=== PATIENT | female | born 1975 | race Caucasian/White ===

== ENCOUNTER 2023-07-09 10:28 | Day surgery (SDC) | payer OTHER, SELFPAY ==
--- NOTE | 2023-07-09 | PATH_ITS ---
[facility] Accession Number: [id number] No. of containers..01 Tissue . 01 Material submitted: . colon - POLYP AT 40 . 01 Diagnosis: Colon Polyp At 40 cm: Serrated lesion, favor sessile serrated adenoma. [facility] 07/11/2023 1115 Local . 01 Electronically signed: . Te Weston MD, PhD, Pathologist NPI- [id number] . 01 Gross description: . POLYP AT 40: Received in formalin is 1 fragment(s) of rogers, soft tissue measuring 0.3 x 0.2 x 0.2 cm submitted entirely in 1 cassette(s) /JENN 07/10/2023 1920 Local . 01 Pathologist provided ICD-10: D12.6 . 01 CPT . 155525 Specimen Comment: A courtesy copy of this report has been sent to [phone] Performed at: 01 [facility] [address] [place] [address], [place], [place] [id number] MD Krishna Le MD Phone: [phone]
[2023-07-09 10:49] VITALS: BP 117/82; PULSE 78; RESP 16; TEMP 36.6; O2SAT 99
[2023-07-09] MEDS: LACTATED RINGERS 1,000 ML 42 ML IV (11:03)
[2023-07-09 11:12] LABS: Hematocrit 42.5 % (36-46); Hemoglobin 14.4 g/dL (12.0-16.0); Mean Corpuscular HGB Conc 33.8 % (30-36); Mean Corpuscular Hemoglobin 29.3 PG (26-34); Mean Corpuscular Volume 86.5 fL (80-100); Platelet Count 56 X10^3/uL (150-400); Red Blood Cell Count 4.91 X10^6/uL (4.0-5.2); Red Cell Distribution Width 13.3 % (11.6-14.8); White Blood Cell Count 6.1 X10^3/uL (4.5-11.0)
--- NOTE | 2023-07-09 11:31 | P.HP_ITS ---
History of Present Illness History of Present Illness Date Patient Seen: 07/09/23 Chief complaint: Screening Colonoscopy Narrative: 1st screening colonoscopy [facility] Medical History (Updated 07/09/23 @ 11:01 by Emily Glynn RN) History of ITP Surgical History (Updated 07/09/23 @ 10:48 by Emily Glynn RN) [place] teeth extracted Social History Smoking Status: Never smoker alcohol intake: current Meds Home Medications and Allergies Home Medications Medication Instructions Recorded Confirmed Type No Known Home Medications 07/09/23 07/09/23 History Allergies Allergy/AdvReac Type Severity Reaction Status Date / Time No Known Drug Allergies Allergy Verified 07/09/23 10:29 Exam Vital Signs (past 8 hours): - 07/09/23 10:49 Temperature 97.9 F Pulse Rate 78 Respiratory Rate 16 Blood Pressure 117/82 Pulse Oximetry 99 Oxygen Delivery Method Room Air Oxygen Delivery Method Room Air Narrative Exam Narrative: Oropharynx free of lesions Chest clear to auscultation percussion Cardiac exam reveals no S3 or murmur Objective Labs 07/09/23 11:04 Labs: Laboratory Results - last 24 hr 07/09/23 11:04 WBC 6.1 RBC 4.91 Hgb 14.4 Hct 42.5 MCV 86.5 MCH 29.3 MCHC 33.8 RDW 13.3 Plt Count 56 L Assessment & Plan Assessment & Plan narrative: Need for for screening colonoscopy. Risks benefits and alternatives have been explained. During the intake for this primary colonoscopy patient stated that she had a ?low platelet count?. When asked further whether this was I TP she stated that it was. She indicated that anesthesia would not do an epidural for her when she delivered her child. She has not needing any intervention for it at this time. Platelet count was drawn and was 56 which is acceptable for the procedure in to remove small polyps. Otherwise we would have seen her in the office 1st. I told her that should in the future she should indicate that this is a significant medical problem particularly before procedures.
--- NOTE | 2023-07-09 11:33 | PM.OP.COLON ---
Operative Date/Time/Diagnoses Date of procedure: 07/09/23 Pre-op diagnosis: See indication and findings Procedure & Clinicians Study performed: Colonoscopy Indications: Screening Surgeon: Jose Trujillo Procedure Notes Procedure in detail: After informed consent was obtained patient was placed in left lateral decubitus position. The video colonoscope was introduced the rectum slowly advanced cecum. On slow withdrawal mucosa was carefully examined. The scope was removed. The patient tolerated procedure well. Blood loss none Complications none Sedation mac Findings 1. Diminutive 3-4 mm polyp at 40 cm biopsied and removed completely 2. Otherwise negative colonoscopy to cecum Patient will be informed about the pathology results and this will determine her follow-up interval most likely 7-10 years.
[2023-07-09 12:19] VITALS: BP 92/65; PULSE 87; RESP 19; TEMP 36.8; O2SAT 93
[2023-07-09 12:24] VITALS: BP 102/74; PULSE 93; RESP 13; O2SAT 97
[2023-07-09 12:29] VITALS: BP 115/79; PULSE 84; RESP 17; O2SAT 98
[2023-07-09 12:34] VITALS: BP 107/78; PULSE 81; RESP 20; TEMP 36.7; O2SAT 96
== END 2023-07-09 12:48 | disposition home or self-care (01) ==
PROVIDERS: Family Provider Physician Assistant; PCP Physician Assistant; Referring Provider Internal Medicine Gastroenterology; Visit Provider Internal Medicine Gastroenterology
PROC: 0DJD8ZZ Inspection of Lower Intestinal Tract, Via Natural or Artificial Opening Endoscopic (ICD-10-PCS; CPT 45378; principal; 2023-07-09 11:30)
DX: Z12.11 Encounter for screening for malignant neoplasm of colon (principal); D69.3 Immune thrombocytopenic purpura; K63.5 Polyp of colon
CPT/HCPCS: 45380; 85027; J2704

== ENCOUNTER → 2023-08-13 14:05 | Outpatient (CLI) | payer OTHER, SELFPAY ==
--- NOTE | 2023-08-13 14:07 | DI.RAD.S_ITS ---
PROCEDURE: XR LUMBAR SPINE 2-3V INDICATIONS: lumbar pain TECHNIQUE: 3 views of the lumbar spine were acquired. COMPARISON: None. FINDINGS: Bones: 5 [id number] vertebrae are present. There is normal bony alignment. No vertebral body compression fractures. No suspicious bony lesions. Mild disc height loss at L4-5. Soft tissues: Overlying bowel gas pattern is normal. No suspicious soft tissue calcifications. IMPRESSION: Mild disc height loss at L4-5. Dictated by: Saad Cheung M.D. on 08/13/2023 at 14:48 Approved by: Saad Cheung M.D. on 08/13/2023 at 14:48
== END ==
LOC: RAD 14:07
PROVIDERS: Family Provider Physician Assistant; PCP Physician Assistant; Referring Provider Nurse Practitioner Family; Visit Provider Nurse Practitioner Family
DX: S39.012A Strain of muscle, fascia and tendon of lower back, initial encounter (principal); X58.XXXA Exposure to other specified factors, initial encounter
CPT/HCPCS: 72100

== ENCOUNTER → 2024-08-05 15:09 | Outpatient (RCR) | payer BC, SELFPAY ==
--- NOTE | 2023-04-02 13:30 | PT.OPPOC ---
Physical, Occupational & Speech Therapy At [facility] Current Diagnoses Stress incontinence (female) (male) (04/02/23) Pelvic muscle wasting (04/02/23) Visit Care Team Role Provider Type Sania Smith PA-C Attending Provider Advanced Optical Brightener Maker Helper Family Provider Primary Care Provider Referring Provider Specialty: Medical Address: [address] [place] [address], [facility] Email: Plan Of Care PT-OP-T Assessment and Plan Start: 04/02/23 09:18 Freq: Status: Active Protocol: Document 04/02/23 11:15 [facility] (Rec: 04/03/23 11:09 [facility] [id number]) Physical Therapy Assessment Rehab Potential Rehabilitation Potential Excellent Evaluation Complexity Number of Personal Factors/Comorbidities 0 Number of Body Systems Impaired 1-2 Clinical Presentation at Evaluation Stable Impairments Impairments Activity Tolerance,Functional Activities,Functional Mobility ,Soft Tissue Mobility,Strength ,Tone Goals 3 Impairment Decreased endurance of the pelvic floor with 1-2 second hold only Short Term Goal (STG) Moira is able to sustain a pelvic floor contraction in supine x 10 seconds STG Duration 5 weeks Alf Goal (LTG) Moira is able to sustain a pelvic floor contraction in standing 5-10 seconds LTG Duration 12 weeks 2 Impairment pelvic floor weakness with MMT of 1/5 for anterior and lateral cuevas and 2/5 for posterior cuevas of the levator ani Drain Technician Goal (LTG) Moira presents with improved strength of the pelvic floor and has improved her MMT by 1 muscle grade or better for improved bladder support and decreased urinary incontinence LTG Duration 12 weeks 1 Impairment urinary stress incontinence that has worsened in the past 3 years but includes leakage of 5-10 times per week Short Term Goal (STG) Moira is educated in a pelvic floor strengthening program for home STG Duration 4 weeks Drain Technician Goal (LTG) Moira reports a overall reduction in urinary incontinence and has decreased her amount of leakage from 5- 10 times per week to 1 or less per week LTG Duration 12 weeks Assessment Summary Assessment Moira is a 47 year old female who presents to physical therapy with urinary stress incontinence that has progressed in the past 3 years . She has a history of 2 vaginal deliveries and her boys are 7 and 6 years old. She notes that she is leaking when running after her kids and playing soccer with them. Moira also reports occasional urgency trying to get to the bathroom and she does get up to void 1 time per night. With pelvic floor evaluation today Moira has difficulty pulling in from the perineum. She does note a 3rd degree tear after her first vaginal delivery. There is some tenderness to palpation at the perineum as well as scar tissue tightness creating a downward pull and some gapping at the introitus. Moira is weak throughout her pelvic floor musculature with 2/5 MMT for the posterior wall and 1/ 5 MMT for the lateral and anterior cuevas. Adductor assist was needed to feel a palpable contraction of the pelvic floor on the lateral cuevas. Moira has difficulty sustaining a pelvic floor contraction for more than 1-2 seconds. Moira is a good candidate for EMG biofeedback and NMES for the pelvic floor to help facilitate pelvic floor contraction. Physical Therapy Plan Frequency and Duration Frequency of Treatment 1x/Week Duration of treatment (weeks) 12 Plan of Care Start Date 04/03/23 Plan of Care End Date 06/26/23 Therapeutic Interventions Therapeutic Interventions Home Exercise Program, Neuromuscular Re-education, Patient/Caregiver Education, Self-Care/Home Management, Therapeutic Exercises Modalities Biofeedback Other Therapeutic Interventions NMES for the pelvic floor Next Visit Focus/Plan Next Note Type Treatment Note Next Visit Plan Begin both EMG biofeedback next visit as well as NMES for improved awareness of pelvic floor contraction and begin endurance training of pelvic floor muscles. Plan of Care Dates Plan of Care Start Date 04/03/23 Plan of Care End Date 06/26/23 Electronically Signed by: Kayla Lo, PT 04/03/23 2172 If you are in agreement with this Plan of Care, please return a signed and dated copy. I have reviewed this Plan of Care and certify that the skilled therapy services above are required to meet the patient?s needs. Physician Signature Date Printed Name and Credentials Clinical Instructor Signature Printed Name and Credentials
--- NOTE | 2023-04-02 13:30 | PT.OIE ---
Current Diagnoses Stress incontinence (female) (male) (04/02/23) Pelvic muscle wasting (04/02/23) Visit Care Team Role Provider Type Sania Smith PA-C Attending Provider Advanced Counter Stacker Family Provider Primary Care Provider Referring Provider Specialty: Medical Address: [address] [place] [address], [id number] Email: Physical Therapy Initial Evaluation PT-OP-A Visit Information Start: 04/02/23 09:18 Freq: Status: Active Protocol: Document 04/02/23 13:22 [facility] (Rec: 04/02/23 13:26 [facility] [id number]) Out-Patient Physical Therapy Visit Information Visit Information Visit Type Initial Evaluation Visit Start Time 11:15 Visit Stop Time 12:05 Total Visit Minutes 50 Visit Number 1 Evaluation Information Evaluation Date 04/02/23 PT-OP-B Current Condition Start: 04/02/23 09:18 Freq: Status: Active Protocol: Document 04/02/23 13:22 [facility] (Rec: 04/02/23 13:26 [facility] [id number]) Current Condition History of Current Condition Onset Date 3 years ago Current Complaints urinary stress incontinence History of Current Condition pt has 2 kids with vaginal delivery 7 and 6 years old. She had a 3rd degree tear with her first delivery. Approx 3 years ago she started noting urinary leakage with running and playing soccer with her kids. She reports no symptoms of pelvic presure, no c/o pain. She does note regular bowel movements for the most part but does have times when she goes a day or 2 between PT-OP-I Pelvic Floor Start: 04/02/23 09:18 Freq: Status: Active Protocol: Document 04/02/23 13:26 [facility] (Rec: 04/02/23 13:28 [facility] [id number]) Pelvic Floor Assessment Urine Pelvic Floor Surgery No Other Urinary Symptoms urinary stress incontinencne, flattulance, some urgency with running water Leakage Size Large Leakage Cause Exercise Other Leakage Causes running or jumping Leaks Per Day 5-10 per week Voiding Frequency 3-6 times Nocturia 1-3 Pads Used In 24 Hours mini pads Pelvic Clock Pelvic Clock 12-3 Atrophy Pelvic Clock 3-6 Atrophy Pelvic Clock 6-9 Atrophy Pelvic Clock 9-12 Atrophy Pelvic Clock Other thinning of the wall over the rectum, very difficult to palpate lateral and anterior wall pelvic floor contraction, decreased ability to pull up from the perineum Perineal Descent Resting Present Contraction Ability Voluntary Contraction Weak Voluntary Relaxation Weak Manual Muscle Testing Left 1 Manual Muscle Testing Right 1 Manual Muscle Testing Anterior 1 Manual Muscle Testing Posterior 2 Muscle Endurance (Seconds) 2 Comments Pelvic Floor Comments poor contraction ability from the lateral and anterior cuevas of the levator ani and Moira lacks the ability to sustain a pelvic floor contraction. I was able palpate her lateral cuevas with adductor assist only PT-OP-Q Treatments Start: 04/02/23 09:18 Freq: Status: Active Protocol: Document 04/02/23 11:15 [facility] (Rec: 04/02/23 13:28 [facility] [id number]) Therapeutic Exercises Supine Exercises supine ball squeeze with pelvic floor facilitation Side bilateral Reps/Minutes 10 reps holding 5 seconds and resting 10 seconds between reps PT-OP-T Assessment and Plan Start: 04/02/23 09:18 Freq: Status: Active Protocol: Document 04/02/23 11:15 [facility] (Rec: 04/03/23 11:09 [facility] [id number]) Physical Therapy Assessment Rehab Potential Rehabilitation Potential Excellent Evaluation Complexity Number of Personal Factors/Comorbidities 0 Number of Body Systems Impaired 1-2 Clinical Presentation at Evaluation Stable Impairments Impairments Activity Tolerance,Functional Activities,Functional Mobility ,Soft Tissue Mobility,Strength ,Tone Goals 3 Impairment Decreased endurance of the pelvic floor with 1-2 second hold only Short Term Goal (STG) Moira is able to sustain a pelvic floor contraction in supine x 10 seconds STG Duration 5 weeks Horse Stud Manager Goal (LTG) Moira is able to sustain a pelvic floor contraction in standing 5-10 seconds LTG Duration 12 weeks 2 Impairment pelvic floor weakness with MMT of 1/5 for anterior and lateral cuevas and 2/5 for posterior cuevas of the levator ani Penitentiary Goal (LTG) Moira presents with improved strength of the pelvic floor and has improved her MMT by 1 muscle grade or better for improved bladder support and decreased urinary incontinence LTG Duration 12 weeks 1 Impairment urinary stress incontinence that has worsened in the past 3 years but includes leakage of 5-10 times per week Short Term Goal (STG) Moira is educated in a pelvic floor strengthening program for home STG Duration 4 weeks Horse Stud Manager Goal (LTG) Moira reports a overall reduction in urinary incontinence and has decreased her amount of leakage from 5- 10 times per week to 1 or less per week LTG Duration 12 weeks Assessment Summary Assessment Moira is a 47 year old female who presents to physical therapy with urinary stress incontinence that has progressed in the past 3 years . She has a history of 2 vaginal deliveries and her boys are 7 and 6 years old. She notes that she is leaking when running after her kids and playing soccer with them. Moira also reports occasional urgency trying to get to the bathroom and she does get up to void 1 time per night. With pelvic floor evaluation today Moira has difficulty pulling in from the perineum. She does note a 3rd degree tear after her first vaginal delivery. There is some tenderness to palpation at the perineum as well as scar tissue tightness creating a downward pull and some gapping at the introitus. Moira is weak throughout her pelvic floor musculature with 2/5 MMT for the posterior wall and 1/ 5 MMT for the lateral and anterior cuevas. Adductor assist was needed to feel a palpable contraction of the pelvic floor on the lateral cuevas. Moira has difficulty sustaining a pelvic floor contraction for more than 1-2 seconds. Moira is a good candidate for EMG biofeedback and NMES for the pelvic floor to help facilitate pelvic floor contraction. Physical Therapy Plan Frequency and Duration Frequency of Treatment 1x/Week Duration of treatment (weeks) 12 Plan of Care Start Date 04/03/23 Plan of Care End Date 06/26/23 Therapeutic Interventions Therapeutic Interventions Home Exercise Program, Neuromuscular Re-education, Patient/Caregiver Education, Self-Care/Home Management, Therapeutic Exercises Modalities Biofeedback Other Therapeutic Interventions NMES for the pelvic floor Next Visit Focus/Plan Next Note Type Treatment Note Next Visit Plan Begin both EMG biofeedback next visit as well as NMES for improved awareness of pelvic floor contraction and begin endurance training of pelvic floor muscles.
--- NOTE | 2023-04-16 12:30 | PT.OTN ---
Current Diagnoses Stress incontinence (female) (male) (04/16/23) Pelvic muscle wasting (04/16/23) Physical Therapy Treatment Note PT-OP-A Visit Information Start: 04/02/23 09:18 Freq: Status: Active Protocol: Document 04/16/23 11:23 [facility] (Rec: 04/16/23 11:54 [facility] [id number]) Out-Patient Physical Therapy Visit Information Visit Information Visit Type Treatment Note Visit Start Time 11:20 Visit Stop Time 12:05 Total Visit Minutes 45 Visit Number 2 PT-OP-B Current Condition Start: 04/02/23 09:18 Freq: Status: Active Protocol: Document 04/02/23 13:22 [facility] (Rec: 04/02/23 13:26 [facility] [id number]) Current Condition History of Current Condition Onset Date 3 years ago Current Complaints urinary stress incontinence History of Current Condition pt has 2 kids with vaginal delivery 7 and 6 years old. She had a 3rd degree tear with her first delivery. Approx 3 years ago she started noting urinary leakage with running and playing soccer with her kids. She reports no symptoms of pelvic presure, no c/o pain. She does note regular bowel movements for the most part but does have times when she goes a day or 2 between PT-OP-C Subjective Start: 04/02/23 09:18 Freq: Status: Active Protocol: Document 04/16/23 11:23 [facility] (Rec: 04/16/23 11:54 [facility] [id number]) OP-PT Subjective Patient Comments Patient Comments pt notes she cant hold the internal muscles even with with ball for more than a few seconds PT-OP-I Pelvic Floor Start: 04/02/23 09:18 Freq: Status: Active Protocol: Document 04/02/23 13:26 [facility] (Rec: 04/02/23 13:28 [facility] [id number]) Pelvic Floor Assessment Urine Pelvic Floor Surgery No Other Urinary Symptoms urinary stress incontinencne, flattulance, some urgency with running water Leakage Size Large Leakage Cause Exercise Other Leakage Causes running or jumping Leaks Per Day 5-10 per week Voiding Frequency 3-6 times Nocturia 1-3 Pads Used In 24 Hours mini pads Pelvic Clock Pelvic Clock 12-3 Atrophy Pelvic Clock 3-6 Atrophy Pelvic Clock 6-9 Atrophy Pelvic Clock 9-12 Atrophy Pelvic Clock Other thinning of the wall over the rectum, very difficult to palpate lateral and anterior wall pelvic floor contraction, decreased ability to pull up from the perineum Perineal Descent Resting Present Contraction Ability Voluntary Contraction Weak Voluntary Relaxation Weak Manual Muscle Testing Left 1 Manual Muscle Testing Right 1 Manual Muscle Testing Anterior 1 Manual Muscle Testing Posterior 2 Muscle Endurance (Seconds) 2 Comments Pelvic Floor Comments poor contraction ability from the lateral and anterior cuevas of the levator ani and Moira lacks the ability to sustain a pelvic floor contraction. I was able palpate her lateral cuevas with adductor assist only PT-OP-Q Treatments Start: 04/02/23 09:18 Freq: Status: Active Protocol: Document 04/16/23 11:23 [facility] (Rec: 04/16/23 11:54 [facility] [id number]) Therapeutic Exercises Supine Exercises supine quick contractions Reps/Minutes x 10 reps 2 sec on 2 sec off pelvic floor isolations Reps/Minutes 5 seconds on 10 seconds off Comments 3 uv average and 12 uv max supine ball squeeze with pelvic floor facilitation Side bilateral Reps/Minutes 10 reps holding 5 seconds and resting 10 seconds between reps Other Exercises clam shells Reps/Minutes x 15 reps pt to work up to 2 x 15 reps 3 times per week Neuro Re-Education Treatment Other Activities NMES for the pelvic floor Comments pt went to 15 to start and could feel more on the right side of her pelvic floor PT-OP-T Assessment and Plan Start: 04/02/23 09:18 Freq: Status: Active Protocol: Document 04/16/23 11:23 [facility] (Rec: 04/16/23 12:29 [facility] [id number]) Physical Therapy Assessment Goals 3 Impairment Decreased endurance of the pelvic floor with 1-2 second hold only Short Term Goal (STG) Moira is able to sustain a pelvic floor contraction in supine x 10 seconds STG Duration 5 weeks Personal Lines Sales Executive Goal (LTG) Moira is able to sustain a pelvic floor contraction in standing 5-10 seconds LTG Duration 12 weeks 2 Impairment pelvic floor weakness with MMT of 1/5 for anterior and lateral cuevas and 2/5 for posterior cuevas of the levator ani Care Home Goal (LTG) Moira presents with improved strength of the pelvic floor and has improved her MMT by 1 muscle grade or better for improved bladder support and decreased urinary incontinence LTG Duration 12 weeks 1 Impairment urinary stress incontinence that has worsened in the past 3 years but includes leakage of 5-10 times per week Short Term Goal (STG) Moira is educated in a pelvic floor strengthening program for home STG Duration 4 weeks Personal Lines Sales Executive Goal (LTG) Moira reports a overall reduction in urinary incontinence and has decreased her amount of leakage from 5- 10 times per week to 1 or less per week LTG Duration 12 weeks Assessment Summary Assessment Moira was noting that she is only able to hold a few seconds at home. I did start with NMES today for the pelvic floor with vaginal sensor and Moira tolerated this well and could feel a stronger contraction following the stim . She may also benefit from using a pelvic egg to help with sensation of contraction. I did add on clam shells as well as quick contractions today and Moira tolerated this well Physical Therapy Plan Frequency and Duration Frequency of Treatment 1x/Week Duration of treatment (weeks) 12 Plan of Care Start Date 04/03/23 Plan of Care End Date 06/26/23 Therapeutic Interventions Therapeutic Interventions Home Exercise Program, Neuromuscular Re-education, Patient/Caregiver Education, Self-Care/Home Management, Therapeutic Exercises Modalities Biofeedback Other Therapeutic Interventions NMES for the pelvic floor Next Visit Focus/Plan Next Note Type Treatment Note Next Visit Plan continue working on EMG biofeedback and NMES for the pelvic floor working towards improved endurance of the pelvic floor. Begin templates for endurance training next visit
--- NOTE | 2023-06-24 16:00 | PT.OPPOC ---
Physical, Occupational & Speech Therapy At [facility] Current Diagnoses Stress incontinence (female) (male) (06/24/23) Pelvic muscle wasting (06/24/23) Visit Care Team Role Provider Type Sania Smith PA-C Attending Provider Advanced Side Laster Staple Family Provider Primary Care Provider Referring Provider Specialty: Medical Address: [address] [place] [address], [facility] Email: Plan Of Care PT-OP-T Assessment and Plan Start: 04/02/23 09:18 Freq: Status: Active Protocol: Document 06/24/23 13:00 [facility] (Rec: 06/24/23 13:00 [facility] [id number]) Physical Therapy Assessment Goals 3 Impairment Decreased endurance of the pelvic floor with 1-2 second hold only Short Term Goal (STG) Moira is able to sustain a pelvic floor contraction in supine x 10 seconds Goal not yet met but Moira is showing some progress with her endurance holds STG Duration 5 weeks Brine Tank Tender Goal (LTG) Moira is able to sustain a pelvic floor contraction in standing 5-10 seconds goal not yet met LTG Duration 12 weeks 2 Impairment pelvic floor weakness with MMT of 1/5 for anterior and lateral cuevas and 2/5 for posterior cuevas of the levator ani Group Home Goal (LTG) Moira presents with improved strength of the pelvic floor and has improved her MMT by 1 muscle grade or better for improved bladder support and decreased urinary incontinence Goal not yet met LTG Duration 12 weeks 1 Impairment urinary stress incontinence that has worsened in the past 3 years but includes leakage of 5-10 times per week Short Term Goal (STG) Moira is educated in a pelvic floor strengthening program for home pt notes she has not formed a habit of doing her exercises at home yet, she is working on finding a time that works for her STG Duration 4 weeks Brine Tank Tender Goal (LTG) Moira reports a overall reduction in urinary incontinence and has decreased her amount of leakage from 5- 10 times per week to 1 or less per week Goal not yet met LTG Duration 12 weeks Assessment Summary Assessment Moira has been seen x 4 visits in PT for pelvic floor strengthening to decrease her complaints of urinary incontinence. She has noted some change when doing the exercises consistently but then has gotten out of the habit with the holidays of doing her exercises. She is working on finding a time that works for her to do them at home. With pelvic exam her tissue is atrophic and she presents with thinning over the posterior wall of the pelvic floor. I am wondering if she would benefit from a vaginal estrogen cream to help her plump up the tissues in the vaginal wall and assist with strengthening. I would like to continue PT with her as she is showing a small amount of change. Physical Therapy Plan Frequency and Duration Frequency of Treatment 1x/Week Duration of treatment (weeks) 8 Plan of Care Start Date 06/24/23 Plan of Care End Date 08/19/23 Next Visit Focus/Plan Next Note Type Treatment Note Next Visit Plan continue working on both pelvic floor strength as well as endurancing training and NMES for neuro re-education of the pelvic floor Plan of Care Dates Plan of Care Start Date 06/24/23 Plan of Care End Date 08/19/23 Electronically Signed by: Kayla Lo, PT 06/25/23 6674 If you are in agreement with this Plan of Care, please return a signed and dated copy. I have reviewed this Plan of Care and certify that the skilled therapy services above are required to meet the patient?s needs. Physician Signature Date Printed Name and Credentials Clinical Instructor Signature Printed Name and Credentials
--- NOTE | 2023-06-24 16:00 | PT.OTN ---
Current Diagnoses Stress incontinence (female) (male) (06/24/23) Pelvic muscle wasting (06/24/23) Physical Therapy Treatment Note PT-OP-A Visit Information Start: 04/02/23 09:18 Freq: Status: Active Protocol: Document 06/24/23 13:00 [facility] (Rec: 06/24/23 13:00 [facility] [id number]) Out-Patient Physical Therapy Visit Information Visit Information Visit Type Progress Note Visit Start Time 13:00 Visit Stop Time 13:45 Total Visit Minutes 45 Visit Number 4 PT-OP-B Current Condition Start: 04/02/23 09:18 Freq: Status: Active Protocol: Document 04/02/23 13:22 [facility] (Rec: 04/02/23 13:26 [facility] [id number]) Current Condition History of Current Condition Onset Date 3 years ago Current Complaints urinary stress incontinence History of Current Condition pt has 2 kids with vaginal delivery 7 and 6 years old. She had a 3rd degree tear with her first delivery. Approx 3 years ago she started noting urinary leakage with running and playing soccer with her kids. She reports no symptoms of pelvic presure, no c/o pain. She does note regular bowel movements for the most part but does have times when she goes a day or 2 between PT-OP-C Subjective Start: 04/02/23 09:18 Freq: Status: Active Protocol: Document 06/24/23 13:00 [facility] (Rec: 06/24/23 13:25 [facility] [id number]) OP-PT Subjective Patient Comments Patient Comments pt notes she emailed her MD about estrogen cream, she has done her exercises a little bit but hasn't noticed a difference PT-OP-I Pelvic Floor Start: 04/02/23 09:18 Freq: Status: Active Protocol: Document 06/24/23 13:00 [facility] (Rec: 06/24/23 13:25 [facility] [id number]) Pelvic Floor Assessment Urine Pelvic Floor Surgery No Other Urinary Symptoms urinary stress incontinencne, flattulance, some urgency with running water Leakage Size Large Leakage Cause Exercise Other Leakage Causes running or jumping Leaks Per Day 2-3 tmes per week Voiding Frequency 3-6 times Nocturia 1 xm Pads Used In 24 Hours mini pads Pelvic Clock Pelvic Clock 12-3 Atrophy Pelvic Clock 3-6 Atrophy Pelvic Clock 6-9 Atrophy Pelvic Clock 9-12 Atrophy Pelvic Clock Other thinning of the wall over the rectum, very difficult to palpate lateral and anterior wall pelvic floor contraction, decreased ability to pull up from the perineum Perineal Descent Resting Present Contraction Ability Voluntary Contraction Weak Voluntary Relaxation Weak Manual Muscle Testing Left 2 Manual Muscle Testing Right 1 Manual Muscle Testing Anterior 1 Manual Muscle Testing Posterior 2 Muscle Endurance (Seconds) 2 Comments Pelvic Floor Comments poor contraction ability from the lateral and anterior cuevas of the levator ani and Moira lacks the ability to sustain a pelvic floor contraction. I was able palpate her lateral cuevas with adductor assist only PT-OP-Q Treatments Start: 04/02/23 09:18 Freq: Status: Active Protocol: Document 06/24/23 13:00 [facility] (Rec: 06/24/23 13:42 [facility] [id number]) Therapeutic Exercises Supine Exercises supine quick contractions Reps/Minutes x 10 reps 2 sec on 2 sec off pelvic floor isolations Reps/Minutes 10 seconds on and 10 seconds of Comments 4.6 and max of 8.7 supine ball squeeze with pelvic floor facilitation Reps/Minutes 10 uv and max of 45 Other Exercises clam shells Reps/Minutes 2 x 10 each side Neuro Re-Education Treatment Other Activities NMES for the pelvic floor Comments started at 15 uv and went to 19 uv PT-OP-T Assessment and Plan Start: 04/02/23 09:18 Freq: Status: Active Protocol: Document 06/24/23 13:00 [facility] (Rec: 06/24/23 13:00 [facility] [id number]) Physical Therapy Assessment Goals 3 Impairment Decreased endurance of the pelvic floor with 1-2 second hold only Short Term Goal (STG) Moira is able to sustain a pelvic floor contraction in supine x 10 seconds Goal not yet met but Moira is showing some progress with her endurance holds STG Duration 5 weeks Correction Goal (LTG) Moira is able to sustain a pelvic floor contraction in standing 5-10 seconds goal not yet met LTG Duration 12 weeks 2 Impairment pelvic floor weakness with MMT of 1/5 for anterior and lateral cuevas and 2/5 for posterior cuevas of the levator ani Sod Farmer Goal (LTG) Moira presents with improved strength of the pelvic floor and has improved her MMT by 1 muscle grade or better for improved bladder support and decreased urinary incontinence Goal not yet met LTG Duration 12 weeks 1 Impairment urinary stress incontinence that has worsened in the past 3 years but includes leakage of 5-10 times per week Short Term Goal (STG) Moira is educated in a pelvic floor strengthening program for home pt notes she has not formed a habit of doing her exercises at home yet, she is working on finding a time that works for her STG Duration 4 weeks Sod Farmer Goal (LTG) Moira reports a overall reduction in urinary incontinence and has decreased her amount of leakage from 5- 10 times per week to 1 or less per week Goal not yet met LTG Duration 12 weeks Assessment Summary Assessment Moira has been seen x 4 visits in PT for pelvic floor strengthening to decrease her complaints of urinary incontinence. She has noted some change when doing the exercises consistantly but then has gotten out of the habit with the holidays of doing her exercises. She is working on finding a time that works for her to do them at home. With pelvic exam her tissue is atrophic and she presents with thinning over the posterior wall of the pelvic floor. I am wondering if she would benefit from a vaginal estrogen cream to help her plump up the tissues in the vaginal wall and assist with strengthening. I would like to continue PT with her as she is showing a small amount of change. Physical Therapy Plan Frequency and Duration Frequency of Treatment 1x/Week Duration of treatment (weeks) 8 Plan of Care Start Date 06/24/23 Plan of Care End Date 08/19/23 Next Visit Focus/Plan Next Note Type Treatment Note Next Visit Plan continue working on both pelvic floor strength as well as endurancing training and NMES for neuro re-education of the pelvic floor
--- NOTE | 2023-06-24 16:00 | PT.OPPOC ---
Physical, Occupational & Speech Therapy At [facility] Current Diagnoses Stress incontinence (female) (male) (06/24/23) Pelvic muscle wasting (06/24/23) Visit Care Team Role Provider Type Sania Smith PA-C Attending Provider Advanced Human Services Case Manager Family Provider Primary Care Provider Referring Provider Specialty: Medical Address: [address] [place] [address], [facility] Email: Plan Of Care PT-OP-T Assessment and Plan Start: 04/02/23 09:18 Freq: Status: Active Protocol: Document 06/24/23 13:00 [facility] (Rec: 06/24/23 13:00 [facility] [id number]) Physical Therapy Assessment Goals 3 Impairment Decreased endurance of the pelvic floor with 1-2 second hold only Short Term Goal (STG) Moira is able to sustain a pelvic floor contraction in supine x 10 seconds Goal not yet met but Moira is showing some progress with her endurance holds STG Duration 5 weeks Sporting Goods Sales Manager Goal (LTG) Moira is able to sustain a pelvic floor contraction in standing 5-10 seconds goal not yet met LTG Duration 12 weeks 2 Impairment pelvic floor weakness with MMT of 1/5 for anterior and lateral cuevas and 2/5 for posterior cuevas of the levator ani Long-Term Goal (LTG) Moira presents with improved strength of the pelvic floor and has improved her MMT by 1 muscle grade or better for improved bladder support and decreased urinary incontinence Goal not yet met LTG Duration 12 weeks 1 Impairment urinary stress incontinence that has worsened in the past 3 years but includes leakage of 5-10 times per week Short Term Goal (STG) Moira is educated in a pelvic floor strengthening program for home pt notes she has not formed a habit of doing her exercises at home yet, she is working on finding a time that works for her STG Duration 4 weeks Sporting Goods Sales Manager Goal (LTG) Moira reports a overall reduction in urinary incontinence and has decreased her amount of leakage from 5- 10 times per week to 1 or less per week Goal not yet met LTG Duration 12 weeks Assessment Summary Assessment Moira has been seen x 4 visits in PT for pelvic floor strengthening to decrease her complaints of urinary incontinence. She has noted some change when doing the exercises consistantly but then has gotten out of the habit with the holidays of doing her exercises. She is working on finding a time that works for her to do them at home. With pelvic exam her tissue is atrophic and she presents with thinning over the posterior wall of the pelvic floor. I am wondering if she would benefit from a vaginal estrogen cream to help her plump up the tissues in the vaginal wall and assist with strengthening. I would like to continue PT with her as she is showing a small amount of change. Physical Therapy Plan Frequency and Duration Frequency of Treatment 1x/Week Duration of treatment (weeks) 8 Plan of Care Start Date 06/24/23 Plan of Care End Date 08/19/23 Next Visit Focus/Plan Next Note Type Treatment Note Next Visit Plan continue working on both pelvic floor strength as well as endurancing training and NMES for neuro re-education of the pelvic floor Plan of Care Dates Plan of Care Start Date 06/24/23 Plan of Care End Date 08/19/23 Electronically Signed by: Kayla Lo, PT 06/25/23 4709 If you are in agreement with this Plan of Care, please return a signed and dated copy. I have reviewed this Plan of Care and certify that the skilled therapy services above are required to meet the patient?s needs. Physician Signature Date Printed Name and Credentials Clinical Instructor Signature Printed Name and Credentials
--- NOTE | 2023-07-15 13:45 | PT.OTN ---
Current Diagnoses Stress incontinence (female) (male) (07/15/23) Pelvic muscle wasting (07/15/23) Physical Therapy Treatment Note PT-OP-A Visit Information Start: 04/02/23 09:18 Freq: Status: Active Protocol: Document 07/15/23 13:01 [facility] (Rec: 07/15/23 13:45 [facility] [id number]) Out-Patient Physical Therapy Visit Information Visit Information Visit Type Treatment Note Visit Start Time 13:00 Visit Stop Time 13:45 Visit Number 5 PT-OP-B Current Condition Start: 04/02/23 09:18 Freq: Status: Active Protocol: Document 04/02/23 13:22 [facility] (Rec: 04/02/23 13:26 [facility] [id number]) Current Condition History of Current Condition Onset Date 3 years ago Current Complaints urinary stress incontinence History of Current Condition pt has 2 kids with vaginal delivery 7 and 6 years old. She had a 3rd degree tear with her first delivery. Approx 3 years ago she started noting urinary leakage with running and playing soccer with her kids. She reports no symptoms of pelvic presure, no c/o pain. She does note regular bowel movements for the most part but does have times when she goes a day or 2 between PT-OP-C Subjective Start: 04/02/23 09:18 Freq: Status: Active Protocol: Document 07/15/23 13:01 [facility] (Rec: 07/15/23 13:45 [facility] [id number]) OP-PT Subjective Patient Comments Patient Comments pt notes she not noticed a lot of change yet. She is still waiting for her estrogen vaginal cream to be ready at the pharmacy PT-OP-I Pelvic Floor Start: 04/02/23 09:18 Freq: Status: Active Protocol: Document 06/24/23 13:00 [facility] (Rec: 06/24/23 13:25 [facility] [id number]) Pelvic Floor Assessment Urine Pelvic Floor Surgery No Other Urinary Symptoms urinary stress incontinencne, flattulance, some urgency with running water Leakage Size Large Leakage Cause Exercise Other Leakage Causes running or jumping Leaks Per Day 2-3 tmes per week Voiding Frequency 3-6 times Nocturia 1 xm Pads Used In 24 Hours mini pads Pelvic Clock Pelvic Clock 12-3 Atrophy Pelvic Clock 3-6 Atrophy Pelvic Clock 6-9 Atrophy Pelvic Clock 9-12 Atrophy Pelvic Clock Other thinning of the wall over the rectum, very difficult to palpate lateral and anterior wall pelvic floor contraction, decreased ability to pull up from the perineum Perineal Descent Resting Present Contraction Ability Voluntary Contraction Weak Voluntary Relaxation Weak Manual Muscle Testing Left 2 Manual Muscle Testing Right 1 Manual Muscle Testing Anterior 1 Manual Muscle Testing Posterior 2 Muscle Endurance (Seconds) 2 Comments Pelvic Floor Comments poor contraction ability from the lateral and anterior cuevas of the levator ani and Moira lacks the ability to sustain a pelvic floor contraction. I was able palpate her lateral cuevas with adductor assist only PT-OP-Q Treatments Start: 04/02/23 09:18 Freq: Status: Active Protocol: Document 07/15/23 13:01 [facility] (Rec: 07/15/23 13:45 [facility] [id number]) Therapeutic Exercises Supine Exercises pelvic floor isolations Reps/Minutes 10 seconds on and 10 seconds of Comments 3.6 and max of 6.5 uv supine ball squeeze with pelvic floor facilitation Reps/Minutes 9.0 max max with ball squeeze Neuro Re-Education Treatment Other Activities NMES for the pelvic floor Comments started at 14 as 15 was too high of a intensity PT-OP-T Assessment and Plan Start: 04/02/23 09:18 Freq: Status: Active Protocol: Document 07/15/23 13:00 [facility] (Rec: 07/17/23 08:15 [facility] [id number]) Physical Therapy Assessment Goals 3 Impairment Decreased endurance of the pelvic floor with 1-2 second hold only Short Term Goal (STG) Moira is able to sustain a pelvic floor contraction in supine x 10 seconds Goal not yet met but Moira is showing some progress with her endurance holds STG Duration 5 weeks School Health Assistant Goal (LTG) Moira is able to sustain a pelvic floor contraction in standing 5-10 seconds goal not yet met LTG Duration 12 weeks 2 Impairment pelvic floor weakness with MMT of 1/5 for anterior and lateral cuevas and 2/5 for posterior cuevas of the levator ani School Health Assistant Goal (LTG) Moira presents with improved strength of the pelvic floor and has improved her MMT by 1 muscle grade or better for improved bladder support and decreased urinary incontinence Moira is slowly showing improvement of pelvic floor strength and endurance LTG Duration 12 weeks 1 Impairment urinary stress incontinence that has worsened in the past 3 years but includes leakage of 5-10 times per week Short Term Goal (STG) Moira is educated in a pelvic floor strengthening program for home pt notes she has not formed a habit of doing her exercises at home yet, she is working on finding a time that works for her STG Duration 4 weeks Mcc Goal (LTG) Moira reports a overall reduction in urinary incontinence and has decreased her amount of leakage from 5- 10 times per week to 1 or less per week Goal not yet met LTG Duration 12 weeks Assessment Summary Assessment Moira has been seen x 5 visits for pelvic floor strengthening. She has not been seen since last note on . She is working on trying to get into the routine for her exercises at home. With exam her tissue still feels atrophied and atrophic. She may benefit from vaginal estrodial to help plump up the tissues while she is strengthening her pelvic floor . She would benefit from continued PT Physical Therapy Plan Frequency and Duration Frequency of Treatment 1x/Week Duration of treatment (weeks) 12 Plan of Care Start Date 07/15/23 Plan of Care End Date 10/07/23 Therapeutic Interventions Therapeutic Interventions Home Exercise Program, Neuromuscular Re-education, Patient/Caregiver Education, Self-Care/Home Management, Therapeutic Exercises Modalities Biofeedback Other Therapeutic Interventions NMES for the pelvic floor Next Visit Focus/Plan Next Note Type Treatment Note Next Visit Plan continue working on both pelvic floor strength as well as endurance training and NMES for neuro re-education of the pelvic floor
--- NOTE | 2023-07-17 16:35 | PT.OPPOC ---
Physical, Occupational & Speech Therapy At [facility] Current Diagnoses Stress incontinence (female) (male) (07/15/23) Pelvic muscle wasting (07/15/23) Visit Care Team Role Provider Type Sania Smith PA-C Attending Provider Advanced Internet Marketing Specialist Family Provider Primary Care Provider Referring Provider Specialty: Medical Address: [address] [place] [address], [facility] Email: Plan Of Care PT-OP-T Assessment and Plan Start: 04/02/23 09:18 Freq: Status: Active Protocol: Document 07/15/23 13:00 [facility] (Rec: 07/17/23 08:15 [facility] [id number]) Physical Therapy Assessment Goals 3 Impairment Decreased endurance of the pelvic floor with 1-2 second hold only Short Term Goal (STG) Moira is able to sustain a pelvic floor contraction in supine x 10 seconds Goal not yet met but Moira is showing some progress with her endurance holds STG Duration 5 weeks Reservations Sales Agent Goal (LTG) Moira is able to sustain a pelvic floor contraction in standing 5-10 seconds goal not yet met LTG Duration 12 weeks 2 Impairment pelvic floor weakness with MMT of 1/5 for anterior and lateral cuevas and 2/5 for posterior cuevas of the levator ani Penitentiary Goal (LTG) Moira presents with improved strength of the pelvic floor and has improved her MMT by 1 muscle grade or better for improved bladder support and decreased urinary incontinence Moira is slowly showing improvement of pelvic floor strength and endurance LTG Duration 12 weeks 1 Impairment urinary stress incontinence that has worsened in the past 3 years but includes leakage of 5-10 times per week Short Term Goal (STG) Moira is educated in a pelvic floor strengthening program for home pt notes she has not formed a habit of doing her exercises at home yet, she is working on finding a time that works for her STG Duration 4 weeks Penitentiary Goal (LTG) Moira reports a overall reduction in urinary incontinence and has decreased her amount of leakage from 5- 10 times per week to 1 or less per week Goal not yet met LTG Duration 12 weeks Assessment Summary Assessment Moira has been seen x 5 visits for pelvic floor strengthening. She has not been seen since last note on . She is working on trying to get into the routine for her exercises at home. With exam her tissue still feels atrophied and atrophic. She may benefit from vaginal estrodial to help plump up the tissues while she is strengthening her pelvic floor . She would benefit from continued PT Physical Therapy Plan Frequency and Duration Frequency of Treatment 1x/Week Duration of treatment (weeks) 12 Plan of Care Start Date 07/15/23 Plan of Care End Date 10/07/23 Therapeutic Interventions Therapeutic Interventions Home Exercise Program, Neuromuscular Re-education, Patient/Caregiver Education, Self-Care/Home Management, Therapeutic Exercises Modalities Biofeedback Other Therapeutic Interventions NMES for the pelvic floor Next Visit Focus/Plan Next Note Type Treatment Note Next Visit Plan continue working on both pelvic floor strength as well as endurance training and NMES for neuro re-education of the pelvic floor Plan of Care Dates Plan of Care Start Date 07/15/23 Plan of Care End Date 10/07/23 Electronically Signed by: Kayla Lo, PT 07/17/23 6006 If you are in agreement with this Plan of Care, please return a signed and dated copy. I have reviewed this Plan of Care and certify that the skilled therapy services above are required to meet the patient?s needs. Physician Signature Date Printed Name and Credentials Clinical Instructor Signature Printed Name and Credentials
--- NOTE | 2023-07-22 14:49 | PT.OTN ---
Current Diagnoses Stress incontinence (female) (male) (07/22/23) Pelvic muscle wasting (07/22/23) Physical Therapy Treatment Note PT-OP-A Visit Information Start: 04/02/23 09:18 Freq: Status: Active Protocol: Document 07/22/23 13:43 [facility] (Rec: 07/22/23 14:34 [facility] [id number]) Out-Patient Physical Therapy Visit Information Visit Information Visit Type Treatment Note Visit Start Time 13:45 Visit Stop Time 14:30 Visit Number 6 PT-OP-B Current Condition Start: 04/02/23 09:18 Freq: Status: Active Protocol: Document 04/02/23 13:22 [facility] (Rec: 04/02/23 13:26 [facility] [id number]) Current Condition History of Current Condition Onset Date 3 years ago Current Complaints urinary stress incontinence History of Current Condition pt has 2 kids with vaginal delivery 7 and 6 years old. She had a 3rd degree tear with her first delivery. Approx 3 years ago she started noting urinary leakage with running and playing soccer with her kids. She reports no symptoms of pelvic presure, no c/o pain. She does note regular bowel movements for the most part but does have times when she goes a day or 2 between PT-OP-C Subjective Start: 04/02/23 09:18 Freq: Status: Active Protocol: Document 07/22/23 13:43 [facility] (Rec: 07/22/23 14:34 [facility] [id number]) OP-PT Subjective Patient Comments Patient Comments pt notes she hasn't leaked at all this week. But did have a episode of leakaing prior to getting to the toilet She has her estrogen cream PT-OP-I Pelvic Floor Start: 04/02/23 09:18 Freq: Status: Active Protocol: Document 06/24/23 13:00 [facility] (Rec: 06/24/23 13:25 [facility] [id number]) Pelvic Floor Assessment Urine Pelvic Floor Surgery No Other Urinary Symptoms urinary stress incontinencne, flattulance, some urgency with running water Leakage Size Large Leakage Cause Exercise Other Leakage Causes running or jumping Leaks Per Day 2-3 tmes per week Voiding Frequency 3-6 times Nocturia 1 xm Pads Used In 24 Hours mini pads Pelvic Clock Pelvic Clock 12-3 Atrophy Pelvic Clock 3-6 Atrophy Pelvic Clock 6-9 Atrophy Pelvic Clock 9-12 Atrophy Pelvic Clock Other thinning of the wall over the rectum, very difficult to palpate lateral and anterior wall pelvic floor contraction, decreased ability to pull up from the perineum Perineal Descent Resting Present Contraction Ability Voluntary Contraction Weak Voluntary Relaxation Weak Manual Muscle Testing Left 2 Manual Muscle Testing Right 1 Manual Muscle Testing Anterior 1 Manual Muscle Testing Posterior 2 Muscle Endurance (Seconds) 2 Comments Pelvic Floor Comments poor contraction ability from the lateral and anterior cuevas of the levator ani and Moira lacks the ability to sustain a pelvic floor contraction. I was able palpate her lateral cuevas with adductor assist only PT-OP-Q Treatments Start: 04/02/23 09:18 Freq: Status: Active Protocol: Document 07/22/23 13:43 [facility] (Rec: 07/22/23 14:34 [facility] [id number]) Therapeutic Exercises Supine Exercises TA with level 1 b lower abdominal progression Reps/Minutes x 10 reps TA with march Reps/Minutes x 20 supine quick contractions Reps/Minutes x 10 reps 2 sec on 2 sec off pelvic floor isolations Reps/Minutes x 10 reps Comments 3.6 and max of 6.5 uv Other Exercises quadruped TA Reps/Minutes x 10 reps PT-OP-T Assessment and Plan Start: 04/02/23 09:18 Freq: Status: Active Protocol: Document 07/22/23 13:43 [facility] (Rec: 07/22/23 14:34 [facility] [id number]) Physical Therapy Assessment Goals 3 Impairment Decreased endurance of the pelvic floor with 1-2 second hold only Short Term Goal (STG) Moira is able to sustain a pelvic floor contraction in supine x 10 seconds Goal not yet met but Moira is showing some progress with her endurance holds STG Duration 5 weeks Jail Goal (LTG) Moira is able to sustain a pelvic floor contraction in standing 5-10 seconds goal not yet met LTG Duration 12 weeks 2 Impairment pelvic floor weakness with MMT of 1/5 for anterior and lateral cuevas and 2/5 for posterior cuevas of the levator ani Toolroom Helper Goal (LTG) Moira presents with improved strength of the pelvic floor and has improved her MMT by 1 muscle grade or better for improved bladder support and decreased urinary incontinence Moira is slowly showing improvement of pelvic floor strength and endurance LTG Duration 12 weeks 1 Impairment urinary stress incontinence that has worsened in the past 3 years but includes leakage of 5-10 times per week Short Term Goal (STG) Moira is educated in a pelvic floor strengthening program for home pt notes she has not formed a habit of doing her exercises at home yet, she is working on finding a time that works for her STG Duration 4 weeks Jail Goal (LTG) Moira reports a overall reduction in urinary incontinence and has decreased her amount of leakage from 5- 10 times per week to 1 or less per week Goal not yet met LTG Duration 12 weeks Assessment Summary Assessment Moira has her estrogen cream and will start using it 2 times per week. I also started TA stabilization with her which she did well with. She does feel like she holds her breath so we worked a lot on TA isolations without breath holds and without upper abdominal substitution Physical Therapy Plan Frequency and Duration Frequency of Treatment 1x/Week Duration of treatment (weeks) 12 Plan of Care Start Date 07/15/23 Plan of Care End Date 10/07/23 Therapeutic Interventions Therapeutic Interventions Home Exercise Program, Neuromuscular Re-education, Patient/Caregiver Education, Self-Care/Home Management, Therapeutic Exercises Modalities Biofeedback Other Therapeutic Interventions [facility] for the pelvic floor Next Visit Focus/Plan Next Note Type Treatment Note Next Visit Plan return to NMES next visit and continue working on TA stabilization
--- NOTE | 2024-08-05 11:28 | PT.OPDS ---
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 She had a 3rd degree tear with her first delivery. Approx 3 years ago she started noting urinary leakage with running and playing soccer with her kids. She reports no symptoms of pelvic presure, no c/o pain. She does note regular bowel movements for the most part but does have times when she goes a day or 2 between PT-OP-C Subjective Start: 04/02/23 09:18 Freq: Status: Active Protocol: Document 07/22/23 13:43 [facility] (Rec: 07/22/23 14:34 [facility] [id number]) OP-PT Subjective Patient Comments Patient Comments pt notes she hasn't leaked at all this week. But did have a episode of leakaing prior to getting to the toilet She has her estrogen cream PT-OP-I Pelvic Floor Start: 04/02/23 09:18 Freq: Status: Active Protocol: Document 06/24/23 13:00 [facility] (Rec: 06/24/23 13:25 [facility] [id number]) Pelvic Floor Assessment Urine Pelvic Floor Surgery No Other Urinary Symptoms urinary stress incontinencne, flattulance, some urgency with running water Leakage Size Large Leakage Cause Exercise Other Leakage Causes running or jumping Leaks Per Day 2-3 tmes per week Voiding Frequency 3-6 times Nocturia 1 xm Pads Used In 24 Hours mini pads Pelvic Clock Pelvic Clock 12-3 Atrophy Pelvic Clock 3-6 Atrophy Pelvic Clock 6-9 Atrophy Pelvic Clock 9-12 Atrophy Pelvic Clock Other thinning of the wall over the rectum, very difficult to palpate lateral and anterior wall pelvic floor contraction, decreased ability to pull up from the perineum Perineal Descent Resting Present Contraction Ability Voluntary Contraction Weak Voluntary Relaxation Weak Manual Muscle Testing Left 2 Manual Muscle Testing Right 1 Manual Muscle Testing Anterior 1 Manual Muscle Testing Posterior 2 Muscle Endurance (Seconds) 2 Comments Pelvic Floor Comments poor contraction ability from the lateral and anterior cuevas of the levator ani and Moira lacks the ability to sustain a pelvic floor contraction. I was able palpate her lateral cuevas with adductor assist only PT-OP-T Assessment and Plan Start: 04/02/23 09:18 Freq: Status: Active Protocol: Document 08/05/24 11:27 [facility] (Rec: 08/05/24 11:28 [facility] [id number]) Physical Therapy Assessment Assessment Summary Assessment Moira was seen x 6 visits in PT and at the time of her last visit was starting to use the estrogen cream. At this point she has not been seen since jul 2023 and will be discharged to a [facility] Physical Therapy Plan Discharge Physical Therapy Discharge Reasons No Longer Attending PT
== END | disposition home or self-care (01) ==
LOC: PHYS 04-02 11:10
PROVIDERS: Family Provider Physician Assistant; PCP Physician Assistant; Referring Provider Physician Assistant; Visit Provider Physician Assistant
DX: N39.3 Stress incontinence (female) (male) (principal); N81.84 Pelvic muscle wasting
CPT/HCPCS: 97110; 97112; 97161; 97535